=== PATIENT | female | born 1945 | race Caucasian/White ===

== ENCOUNTER → 2016-06-22 | Day surgery (SDC) | payer OTHER ==
[~2016-06-22] VITALS: Ht 147.3 cm; Wt 74.8 kg
[~2016-06-22] MED LIST: ALDACTONE100 M1 PO; ASPIRIN81 M4 PO; BYSTOLIC5 M1 PO; CELEBREX200 M1 PO; CRESTOR5 M1 PO; CYMBALTA30 M1 PO; EVAMIST8.1 ML; HYDROCHLOROTHIA25 M1 PO; JANUVIA100 M1 PO; LEVOTHYROXINE100 MC1 PO; MAGNESIUM250 M2 PO; OMEPRAZOLE40 M1 PO
--- NOTE | 2016-06-22 11:28 | Operative Report ---
Operative/Inv Procedure Report Surgery Date: 06/22/16 Name of Procedure: Cataract extraction lens implantation right eye Pre-Operative Diagnosis: Age-related cataract right eye 20/25 vision 20/60 glare vision Post-Operative Diagnosis: Same Estimated Blood Loss: none Surgeon/Stitch Separator: HAL HECTOR,SILVIA Rizvi Anesthesia: local monitored anesthesi Complications: None Operative/Procedure Note Note: The patient was brought to the operating room standard monitoring equipment was attached the patient was prepped and draped in the usual fashion for intraocular surgery. A lid speculum was placed to retract the lids. The case was begun by making a temporal incision with a 2.4 mm keratome. The eye was stabilized with a Huynh ring during this incision. 1 mL of non-preserved lidocaine was introduced into the anterior chamber to provide anesthesia. The anterior chamber was then filled and deepened with viscoelastic. A curvilinear capsulorrhexis was achieved using a 30-gauge needle and is a cystotome and capsulorrhexis was finished using a Utrata forceps. A second or paracentesis incision was made temporally with a 1 mm MVR blade. The lens was then hydrodissected with balanced salt solution and found to be rotatable. The lens was emulsified using phacoemulsification and a modified four-quadrant cracking technique. The residual cortical material was removed using automated irrigation and aspiration and as much of the anterior capsular rim was cleaned as well as possible. The posterior capsule was cleaned first with the automated machine on a low setting and then manually with a Ricardo squeegee. The capsular bag was deepened with viscoelastic. The lens a Technis 1 17.0 Diopter placed into the bag under direct visualization and rotated so that the haptics were at 12 and 6:00. Viscoelastic was then removed from the eye by flushing it out and then by automated irrigation and aspiration. The eye was pressurized to a normal tone. 1/10 of a cc of vancomycin solution was introduced into the anterior chamber to provide antibiotic prophylaxis. The wounds were sealed by hydrating the stroma adjacent to them and the eye was left at a proper tone after the wounds were checked and found not to be leaking. The lid speculum was removed from the orbit. Antibiotic and steroid drops were placed on the eye and then the eye was shielded. Monitoring equipment was removed from the patient and the patient was removed from the operative suite to the holding area. The patient tolerated the procedure well and will be seen in the office tomorrow.
== END ==
LOC: STS 03:37
DX: H25.9 Unspecified age-related cataract (principal); I10 Essential (primary) hypertension
CPT/HCPCS: J2250; V2632

== ENCOUNTER 2017-09-10 12:15 | Emergency (ER) | payer OTHER ==
--- NOTE | 2017-09-10 13:10 | ED GENERAL ADULT ---
History of Present Illness General Chief Complaint: General Adult Stated Complaint: DEHYDRATION, NOT EATING Source: patient Exam Limitations: no limitations Vital Signs & Intake/Output Vital Signs & Intake/Output Vital Signs Date Time Temp Pulse Resp B/P B/P Pulse O2 O2 Flow FiO2 Mean Ox Delivery Rate 09/10 1553 97 09/10 1418 74 16 110/56 99 Room Air 09/10 1226 96.7 78 16 115/76 99 Room Air Allergies Coded Allergies: metformin (Intermediate, DIARRHEA 09/10/17) bacitracin (UNKNOWN 06/16/16) Reconcile Medications Aspirin (Aspirin*) 81 MG TAB.CHEW 1 TAB PO DAILY HEART HEALTH (Reported) Celecoxib (Celebrex) 200 MG CAPSULE 1 CAP PO DAILY PAIN (Reported) Duloxetine Hydrochloride (Cymbalta) 30 MG CAPSULE.DR 1 CAP PO DAILY UNKNOWN ( Reported) Estradiol (Evamist) 1.53 MG/SPRAY (1.7 %) SPRAY UNKNOWN (Reported) Hydrochlorothiazide 25 MG TABLET 1 TAB PO DAILY WATER PILL (Reported) Levothyroxine Sodium 100 MCG TABLET 1 TAB PO DAILY AC THYROID (Reported) Magnesium Oxide (Magnesium) 250 MG TABLET 1 TAB PO DAILY SUPPLEMENT (Reported ) Nebivolol HCl (Bystolic) 5 MG TABLET 1 TAB PO DAILY BP (Reported) Omeprazole 40 MG CAPSULE.DR 1 CAP PO DAILY GI (Reported) Ondansetron (Zofran Odt) 4 MG TAB.RAPDIS 1 TAB SL TID PRN nausea Rosuvastatin Calcium (Crestor) 5 MG TABLET 1 TAB PO DAILY CHOLESTEROL ( Reported) Sitagliptin Phosphate (Januvia) 100 MG TABLET 1 TAB PO DAILY DM (Reported) Spironolactone (Aldactone) 100 MG TABLET 2 TAB PO DAILY EDEAMA (Reported) Triage Note: PT TO ER C/C PERSISTENT NAUSEA S/P NISSENFUNDOPLICATION SURGERY 08/[address] COLE AT [facility]. HAS LOST 20 LBS SINCE. HAD F/U WITH SURGEON TUESDAY. Triage Nurses Notes Reviewed? yes Onset: Gradual Duration: week(s): Timing: constant HPI: 72 y/o female with h/o HTN, HLD, GERD, clrak's esophagus, s/p fundoplication presenting with worsening nausea since the surgery. No vomiting, but constant dry heaving. Unable to tolerate po, has had 20 pound weight loss since the surgery. Also with mild intermittent epigastric pain that she reports is colicky, and tolerable, has not required any pain meds. Endorses constipation, with last BM 3 days ago, states this is normal for her, still passing flatus. Denies fevers, CP, SOB, diarrhea, dysuria. (Sandhya Santana) Past History Travel History Traveled to [place] past 21 day No Medical History Any Pertinent Medical History? see below for history Cardiovascular: hypertension, hyperlipidemia Gastrointestinal: GERD, CLARK'S ESOPHAGUS Musculoskeletal: osteoarthritis Surgical History Surgical History: fundoplication Psychosocial History What is your primary language Lithuanian Tobacco Use: Quit >30 days ago Family History Hx Contributory? No (Sandhya Santana) Review of Systems Review of Systems Constitutional: Reports: no symptoms. EENTM: Reports: no symptoms. Respiratory: Reports: no symptoms. Cardiovascular: Reports: no symptoms. GI: Reports: see HPI, abdominal pain, nausea. Denies: diarrhea, distention, melena, bloody stool, vomiting. Genitourinary: Reports: no symptoms. Musculoskeletal: Reports: no symptoms. Skin: Reports: no symptoms. Neurological/Psychological: Reports: no symptoms. Hematologic/Endocrine: Reports: no symptoms. Immunologic/Allergic: Reports: no symptoms. (Sandhya Santana) Physical Exam Physical Exam General Appearance: well developed/nourished, alert, awake, actively dry heaving Head: atraumatic, normal appearance Eyes: Bilateral: normal appearance. Neck: normal inspection Respiratory: normal breath sounds, lungs clear Cardiovascular: regular rate/rhythm Gastrointestinal: normal bowel sounds, soft, non-tender Back: normal inspection Extremities: normal inspection Neurologic/Psych: awake, alert, oriented x 3, normal gait, normal mood/affect Skin: intact, normal color, warm/dry Core Measures ACS in differential dx? Yes CVA/TIA Diagnosis: No Sepsis Present: No Sepsis Focused Exam Completed? No (Sandhya Santana) Progress Differential Diagnoses I considered the following diagnoses in my evaluation of the patient: [post op nausea vs gastritis vs GERD, low concern for bowel obstruction vs post op infection vs viscus perf vs pancreatitis vs biliary vs ACS] Plan of Care: Orders Procedure Date/time Status Add-on Test (ER Only) 09/10 1546 Active EKG 09/10 1311 Active TROPONIN LEVEL 09/10 1232 Complete MAGNESIUM 09/10 1232 Complete COMPREHENSIVE METABOLIC PANEL 09/10 1232 Complete CBC WITHOUT DIFFERENTIAL 09/10 1232 Complete Laboratory Tests 09/10/17 1327: Anion Gap 15, Estimated GFR 44 L, BUN/Creatinine Ratio 27.5 H, Glucose 144 H, Calcium 9.8, Magnesium 1.6, Total Bilirubin 0.8, AST 19, ALT 19, Alkaline Phosphatase 85, Troponin I 0.03, Total Protein 7.2, Albumin 4.0, Globulin 3.2, Albumin/Globulin Ratio 1.3, CBC w Diff NO MAN DIFF REQ, RBC 4.15 L, MCV 88.7, MCH 29.4, MCHC 33.2, RDW 12.9, MPV 8.3, Gran % 87.1 H, Lymphocytes % 5.3 L, Monocytes % 6.8, Eosinophils % 0.5, Basophils % 0.3, Absolute Granulocytes 9.9 H, Absolute Lymphocytes 0.6 L, Absolute Monocytes 0.8 H, Absolute Eosinophils 0.1, Absolute Basophils 0 09/10/17 1311: Lipase Cancelled 09/10/17 1232: Urine Color Cancelled, Urine Clarity Cancelled, Urine pH Cancelled, Ur Specific Archer Cancelled, Urine Protein Cancelled, Urine Ketones Cancelled, Urine Nitrite Cancelled, Urine Bilirubin Cancelled, Urine Urobilinogen Cancelled, Ur Leukocyte Esterase Cancelled, Ur Microscopic Cancelled, Urine Hemoglobin Cancelled, Urine Glucose Cancelled Labs show mild hypoNa to 133 and mild IZABELA 1.2. Given NS bolus for rehydration. Pt reports reports feeling better after IVF and zofran, able to tolerate po, drank an ensure. Will discharge home with rx zofran and instructed to continue her post op diet. Discussed with Dr. Cazares (covering for Dr. Janak Cole) and pt has f/u appt this Tuesday. Given strict return precautions. Initial ED EKG: NSR, no ST T wave changes (Sandhya Santana) Departure Departure Disposition: HOME OR SELF CARE Condition: Stable Clinical Impression Primary Impression: Nausea Referrals: Portia HECTOR,Bam Hernández (PCP/Family) Additional Instructions: Use Zofran as needed for nausea. Follow-up with your surgeon on Tuesday as scheduled. Return to the emergency department for any normal worsening symptoms. Departure Forms: Customer Survey General Discharge Information Prescriptions: Current Visit Scripts Ondansetron (Zofran Odt) 1 TAB SL TID PRN nausea #20 TAB (Sandhya Santana) PA/LIGHT RAIL TRANSIT OPERATOR Co-Sign Statement Statement: ED Attending supervision documentation- x I saw and evaluated the patient. I have also reviewed all the pertinent lab results and diagnostic results. I agree with the findings and the plan of care as documented in the PA's/LIGHT RAIL TRANSIT OPERATOR's documentation. [] I have reviewed the ED Record and agree with the PA's/LIGHT RAIL TRANSIT OPERATOR's documentation. [] Additions or exceptions (if any) to the PAs/LIGHT RAIL TRANSIT OPERATOR's note and plan are summarized below: [] (Bradly HECTOR,Be) Critical Care Note Critical Care Note Critical Care Time: non-applicable (Sandhya Santana)
[2017-09-10 13:49] LABS: ABSOLUTE BASOPHIL COUNT 0 /CUMM (0.0-0.2); ABSOLUTE EOSINOPHIL COUNT 0.1 /CUMM (0.0-0.7); ABSOLUTE GRANULOCYTE CT 9.9 /CUMM (1.4-6.5); ABSOLUTE LYMPH COUNT 0.6 /CUMM (1.2-3.4); ABSOLUTE MONOCYTE COUNT 0.8 /CUMM (0.10-0.60); BASOPHIL % 0.3 % (0.0-2.0); EOSINOPHIL % 0.5 % (0-5); GRANULOCYTE % 87.1 % (42.2-75.2); HEMATOCRIT 36.8 % (37-47); MEAN CORPUSCULAR HGB 29.4 PG (27.0-31.0); MEAN CORPUSCULAR HGB CONC 33.2 G/DL (33.0-37.0); MEAN CORPUSCULAR VOLUME 88.7 FL (81.0-99.0); MEAN PLATELET VOLUME 8.3 FL (7.4-10.4); PLATELET COUNT 313 /CUMM (130-400); RBC DISTRIBUTION WIDTH 12.9 % (11.5-14.5); RED BLOOD CELL CT 4.15 /CUMM (4.20-5.40); WHITE BLOOD CELL COUNT 11.4 /CUMM (4.8-10.8)
[2017-09-10 14:18] VITALS: BP 110/56
[2017-09-10] MEDS ORDERED: ZOFRAN ODT4 M1 SL (15:44)
== END 2017-09-10 15:50 ==
LOC: ERH 12:15
PROVIDERS: Physician Assistant Medical
DX: R10.13 Epigastric pain (principal); R11.0 Nausea
CPT/HCPCS: 93005; 93010; 96374; 96375; J1885; J2405